=== PATIENT | male | born 2000 | race Caucasian/White ===

== ENCOUNTER 2018-04-22 00:52 | Emergency (ER) | payer SELFPAY ==
[~2018-04-22] VITALS: Ht 175.3 cm; Wt 68.9 kg
[2018-04-22 01:09] VITALS: Ht 175.3 cm; Wt 68.9 kg
[2018-04-22 03:05] VITALS: BP 120/68
== END 2018-04-22 03:05 | disposition home or self-care (01) ==
LOC: ED 00:52
DX: K29.00 Acute gastritis without bleeding (principal)
CPT/HCPCS: Q0162